=== PATIENT | female | born 1960 | race Caucasian/White ===

== ENCOUNTER 2023-01-02 09:48 | Day surgery (SDC) | payer OTHER, SELFPAY ==
[2023-01-02] VITALS (7 sets, daily range): BP systolic 99–147; BP diastolic 56–82; PULSE 71–82; RESP 11–19; TEMP 36.3–36.6; O2SAT 95–99; BMI 29.6
--- NOTE | 2023-01-02 | PATH_ITS ---
[facility] Accession Number: [id number] No. of containers..03 Tissue . 01 Material submitted: . PART A: colon - SIGMOID POLYP BIOPSY PART B: colon - LARGE, CECAL POLYP BIOPSY PART C: rectum - RECTAL POLYP X2 . 01 Diagnosis: A. Sigmoid Colon, Polyp, Biopsy: Tubular adenoma. . B. Cecum Polyp, Biopsy: Tubulovillous adenoma. No evidence of malignancy or high-grade dysplasia. . C. Rectum, Polyp x2, Biopsies: Hyperplastic polyps. [facility] 01/06/2023 1557 Local . 01 Electronically signed: . Paz Gabriel MD, Pathologist NPI- [id number] . 01 Gross description: . Part A: SIGMOID POLYP BIOPSY: Received in formalin is 1 fragment(s) of arriola, soft tissue measuring 0.2 x 0.2 x 0.1 cm to 0.4 x 0.3 x 0.2 cm submitted entirely in 1 cassette(s) Part B: LARGE, CECAL POLYP BIOPSY: Received in formalin are multiple fragment(s) of arriola, soft tissue measuring 0.1 x 0.1 x 0.1 cm to 1.2 x 0.6 x 0.6 cm submitted entirely in 1 cassette(s) Part C: RECTAL POLYP X2: Received in formalin are 2 fragment(s) of arriola, soft tissue measuring 0.1 x 0.1 x 0.1 cm to 0.3 x 0.3 x 0.3 cm submitted entirely in 1 cassette(s) /[facility] 01/05/20232020 Local . 01 Pathologist provided ICD-10: D12.5, D12.0, K62.1 . 01 CPT . 376389, 567672, 195244 Specimen Comment: A courtesy copy of this report has been sent to [facility] Pathology Performed at: 01 [facility] [address], [place], [place] [id number] MD Saad Zeng MD Phone: [phone]
[2023-01-02] MEDS: LACTATED RINGERS 1,000 ML 100 ML IV (10:14)
--- NOTE | 2023-01-02 11:00 | P.HP_ITS ---
History of Present Illness History of Present Illness Date Patient Seen: 01/02/23 Time Patient Seen: 11:00 Chief complaint: Colonoscopy Narrative: Ms. Chris is 62-year-old relatively healthy female. Records reviewed indicate a history of atypical ductal hyperplasia, viral hepatitis-C, hypertension, and vaginal atrophy/menopausal symptoms. She has had colonoscopy in 02/2012 and a 6 mm tubular adenoma in the descending colon was removed. She has no family his tory of colon cancer and no concerning symptoms no bleeding or changes in bowel habits. She does have occasional constipation for which she takes ?smooth move tea? and that generally resolves any problems. She has no questions or concerns today and is simply presenting for screening. [facility] Medical History (Updated 01/02/23 @ 11:04 by Nathalie Izquierdo MD) Arthritis Eczema Hepatitis C Herpes Hypertension Surgical History (Updated 01/02/23 @ 10:02 by Amor Ceballos RN) History of tubal ligation Social History household members: spouse Smoking Status: Never smoker alcohol intake: current Meds Home Medications and Allergies Home Medications Medication Instructions Recorded Confirmed Type estradiol 10 mg vaginal BIDWM 01/02/23 01/02/23 History lisinopril 5 mg PO DAILY PRN herpes 01/02/23 01/02/23 History valacyclovir 500 mg PO DAILY 01/02/23 01/02/23 History Allergies Allergy/AdvReac Type Severity Reaction Status Date / Time No Known Allergies Allergy Verified 01/02/23 10:02 Exam Vital Signs (past 8 hours): - 01/02/23 10:07 Temperature 97.9 F Pulse Rate 75 Respiratory Rate 16 Blood Pressure 147/82 H Pulse Oximetry 95 Oxygen Delivery Method Room Air Oxygen Delivery Method Room Air Const General: cooperative, healthy appearing and comfortable [facility] Head: normal to inspection Resp Effort & Inspection: normal respiratory effort and able to speak in complete sentences GI Palpation: soft and No tender Assessment & Plan Assessment and plan (1) History of colon polyps: Status: Acute (2) Colon cancer screening: Status: Acute Assessment & Plan narrative: Presents today for screening colonoscopy I discussed the risks benefits and alternatives including but not limited to perforation of the colon and an incomplete exam she fully understands these risks and would like to proceed.
--- NOTE | 2023-01-02 12:17 | P.OP.COLON_ITS ---
Operative Date/Time/Diagnoses Date of procedure: 01/02/23 Pre-op diagnosis: Colon cancer screening, average risk Procedure & Clinicians Study performed: Colonoscopy and biopsy Surgeon: Nathalie Izquierdo Procedure Notes Procedure in detail: Patient was taken to the endoscopy suite and placed in a left lateral decubitus position. A time-out was performed. With the help of anesthesiologist just sedation was induced and maintained throughout the case. A digital rectal exam was performed and there were some small external hemorrhoids in the right lateral and left posterior positions, which were otherwise unremarkable. The colonoscope was introduced into the anal canal and advanced through to the cecum. Throughout the sigmoid colon and also the remainder of the colon including the right colon there were several large clusters of diverticula throughout. Photographs of these were obtained. There were a few solid balls of stool but the majority of the prep was good; Sebewaing bowel prep score of 2. While advancing through the sigmoid a small about 8-9 mm sized polyp was seen and fully removed with 2 bites of the Jumbo forceps. This was sent for patholo gy. The colonoscope was then advanced into the cecum and a photograph was obtained of the appendiceal orifice. Upon withdrawal from the cecum there was a very large greater than 1 cm polyp which was separate from the ileocecal orifice. I tried to obtain a picture that showed the relationship between the orifice and the polyp but it was difficult to get the best picture however it was very clear that this polyp was distinct and separate from the ileocecal orifice, but nearby. Several photographs of the polyp itself were obtained. I think the size of the polyp likely was between 1.5 cm to 2 cm in size. I did try to come completely around it with a biopsy loop that was attached to electrocautery. On the 1st pass I was unable to take the entire polyp in 1 bite and a 2nd pass with the loop was required. I then cleared a few smaller areas with biopsy forceps. The biopsy site was photographed. I believe that the entire polyp was removed. The pieces were suctioned and retained in the suction canister. They were sent for biopsy. The scope was then withdrawn further and other than the diverticula no further polyps were seen, until reaching the rectum which time there were a few small polyps that were biopsied individually with the forceps and sent together in 1 specimen jar. These had the appearance of hyperplastic polyps. The scope was then retroflexed and photographs of the hemorrhoidal piles were obtained these appeared normal. The scope was then withdrawn. The total withdrawal time was 29 minutes including the biopsies described above. Patient tolerated the procedure well and went in good condition to the postoperative care unit findings were discussed with Mark by on the phone. Findings: divertiulosis and polyp(s) (In particular 1 very large cecal polyp. This would indicate a follow-up interval of between 1 in 3 years.) Specimen(s): other (1. Sigmoid polyp biopsy, less than 1 cm 2. Very large cecal polyp biopsy 3. Very small rectal polyps x2) Complications: none Post-procedure Plan for aftercare: Colonoscopy in 1-3 years. Biopsy results pending. Recommend twice daily fiber supplementation. Disposition: PACU
== END 2023-01-02 12:44 | disposition home or self-care (01) ==
PROVIDERS: Referring Provider Surgery; Visit Provider Surgery
PROC: 0DJD8ZZ Inspection of Lower Intestinal Tract, Via Natural or Artificial Opening Endoscopic (ICD-10-PCS; CPT 45378; principal; 2023-01-02 10:45)
DX: Z12.11 Encounter for screening for malignant neoplasm of colon (principal); Z86.010 Personal history of colon polyps; K57.30 Diverticulosis of large intestine without perforation or abscess without bleeding; D12.5 Benign neoplasm of sigmoid colon; D12.0 Benign neoplasm of cecum; K62.1 Rectal polyp
CPT/HCPCS: 45384; 45380; J2250; J3010

== ENCOUNTER → 2024-04-13 | Outpatient (CLI) | payer MEDICARE, SELFPAY ==
--- NOTE | 2024-04-13 14:18 | DI.MG.S_ITS ---
BILATERAL DIGITAL SCREENING MAMMOGRAM 3D/2D WITH CAD: 04/13/2024 CLINICAL: Routine screening. No prior exams were available for comparison. There are scattered areas of fibroglandular density in both breasts (category b / 25%-50% glandular tissue). Current study was also evaluated with a Computer Aided Detection (CAD) system. There are benign calcifications in both breasts. There also are benign post operative findings in the right breast. No significant masses, calcifications, or other findings are seen in either breast. IMPRESSION: BENIGN There is no mammographic evidence of malignancy. A 1 year screening mammogram is recommended. Based on the Tyrer Cuzick model (a risk assessment model) the patient's lifetime risk is 5.8% and her 10 year risk is 2.9%. According to the ACR, ACS, and NCCN guidelines, an annual breast MRI exam along with mammogram is recommended if the patient's lifetime risk is 20% or greater. This exam was interpreted at Station ID: [id number]. NOTE: For mammograms, a report in lay terms will be sent to the patient. Approximately 15% of breast malignancies will not be visualized mammographically. In the management of a palpable breast mass, a negative mammogram must not discourage biopsy of a clinically suspicious lesion. Electronically Signed By: Michele varghese/andrea:04/28/2024 12:01:40 letter sent: Normal Exam ACR BI-RADS Category 2: Benign Finding(s) 3342F
--- NOTE | 2024-04-13 14:18 | DI.RAD.S_ITS ---
PROCEDURE: XR DEXA AXIAL SKELETON INDICATIONS: asymptomatic age related postmenopausal state COMPARISON: None. FINDINGS: Lumbar Spine: Bone mineral density 1.0021 g/cm2, T score -0.2 Left Hip: Bone mineral density is 0.875 g/cm2, T score -0.6 Left Femoral Neck: Bone mineral density 0.753 g/cm2, T score -0.9 Right Hip: Bone mineral density 0.890g/cm2, T score -1.3 Right Femoral Neck: Bone mineral density 0.710 g/cm2, T score -1.3 Fracture Risk Calculation (when applicable): 10-year fracture risk of a major osteoporotic fracture 8.3% and of a hip fracture 0.7% (T score greater or equal to -1.0 to: NORMAL) (T score from -1.1 to -2.4: OSTEOPENIA) (T score less than or equal to -2.5: OSTEOPOROSIS) IMPRESSION: There is osteopenia of the right hip and right femoral neck. The lumbar spine, left hip and left femoral neck are within normal limits. Is Follow-up guidelines as follows: Osteoporosis: Consider a repeat DEXA and Vertebral Fracture Assessment (VFA) exam in 2 years or sooner if medically necessary, to reassess this patient's status. Osteopenia: Consider a repeat DEXA in 2-3 years to reassess this patient's status, or if there is a new clinical indication. Normal: Consider a repeat DEXA in 5 years or sooner, or if there is a new clinical indication. All treatment decisions require clinical judgment and consideration of individual patient factors, including patient preferences, comorbidities, previous drug use, risk factors not captured in the FRAX model (e.g., frailty, falls, vitamin D deficiency, increased bone turnover, interval significant decline in bone density ) and possible under- or over-estimation of fracture risk by FRAX. In addition, the NOF Guide recommends that FDA-approved medical therapies be considered in postmenopausal women and men age >= 50 years with a: * Hip or vertebral (clinical or morphometric) fracture * T-score of <=-2.5 at the spine or hip * Ten-year fracture probability by FRAX of >= 3% for hip fracture or >=20% for major osteoporotic fracture. People with diagnosed cases of osteoporosis or at high risk for fracture should have regular bone mineral density tests. For patients eligible for Medicare, routine testing is allowed once every 2 years. The testing frequency can be increased to one year for patients who have rapidly progressing disease, those who are receiving or discontinuing medical therapy to restore bone mass, or have additional risk factors. Dictated by: Rickey Beckford M.D. on 04/14/2024 at 7:55 Approved by: Rickey Beckford M.D. on 04/14/2024 at 7:58
== END ==
LOC: MAMMO 14:17
PROVIDERS: PCP Family Medicine; Referring Provider Family Medicine; Visit Provider Family Medicine
DX: Z12.31 Encounter for screening mammogram for malignant neoplasm of breast (principal); Z78.0 Asymptomatic menopausal state; M85.851 Other specified disorders of bone density and structure, right thigh; M85.89 Other specified disorders of bone density and structure, multiple sites
CPT/HCPCS: 77063; 77067; 77080

== ENCOUNTER → 2025-08-21 11:11 | Outpatient (CLI) | payer MEDICARE, SELFPAY ==
--- NOTE | 2025-08-21 11:12 | DI.MG.S_ITS ---
MM screening mammo BI: 08/21/2025. BI-RADS: 1 CLINICAL: 65-year old female for bilateral screening mammogram. Tyrer-Cuzick lifetime risk of 5.8%. No personal or first-degree family history of breast cancer. The patient had a prior right breast biopsy. PRIOR EXAMS 04/13/2024. MAMMOGRAPHY TECHNIQUE: 2D and 3D (tomosynthesis) digital mammographic views obtained, with additional images as needed for full coverage. Current study was also evaluated with a Computer Aided Detection (CAD) system. DENSITY B. There are scattered areas of fibroglandular density. MAMMOGRAPHY FINDINGS Bilateral: No suspicious mass, asymmetry, microcalcification, or other abnormality seen. IMPRESSION: * No evidence of malignancy. RECOMMENDATIONS Bilateral * Annual screening mammography. OVERALL ASSESSMENT CATEGORY BI-RADS-1: Negative. The [employer] recommends annual screening mammography beginning at age 40 for women with average risk of breast cancer. ELECTRONICALLY SIGNED: Lisa Gutierrez M.D. on 08/22/2025 at 09:35:14 PM PT Interpreting Station ID: [id number]
== END ==
LOC: MAMMO 11:12
PROVIDERS: PCP Family Medicine; Referring Provider Family Medicine; Visit Provider Family Medicine
DX: Z12.31 Encounter for screening mammogram for malignant neoplasm of breast (principal)
CPT/HCPCS: 77063; 77067